=== PATIENT | female | born 1945 | race Caucasian/White ===

== ENCOUNTER 2019-12-13 17:41 | Emergency (ER) | payer MEDICARE, SELFPAY ==
[2019-12-13 17:53] VITALS: BP 82/42; PULSE 105; RESP 20; TEMP 36.4; O2SAT 94; BMI 23.3
--- NOTE | 2019-12-13 18:09 | XRR_ITS ---
PROCEDURE INFORMATION: Exam: XR Chest, 1 View Exam date and time: 12/13/2019 6:27 PM Age: 74 years old Clinical indication: Shortness of breath and other: Chest pain; Patient HX: C/O shortness of breath along with chest pain over 2 weeks. Previous XR 12/09/19; Additional info: SOB TECHNIQUE: Imaging protocol: XR of the chest Views: 1 view. COMPARISON: CR XR chest 2V* [id number] 12/09/2019 3:27 PM FINDINGS: Lungs: Opacity right upper lobe noted on the previous radiograph. Please refer to the CT chest dated 12-13-19 describing a large mass in the right upper lobe. Pleural space: Unremarkable. No pleural effusion. No pneumothorax. Heart/Mediastinum: The cardiac silhouette appears enlarged, some of which is magnification related to the AP projection. Bones/joints: Unremarkable. XR/XR chest 1V portable [id number] IMPRESSION: Opacity right upper lobe noted on the previous radiograph. Please refer to the CT chest dated 12-13-19 describing a large mass in the right upper lobe. No acute process is visualized.
--- NOTE | 2019-12-13 18:09 | ECG_ITS ---
[facility] Test Date: 2019-12-13 Pat Name: Tessie Loredo Department: Room: Gender: Female Road Roller Operator: : 1945 Requested By: Karan Henderson Order Number: [id number] Norah MD: Latonya Campos M.D. Measurements Intervals [place] Rate: 100 P: 67 [place]: 161 QRS: 58 QRSD: 82 T: 43 QT: 331 QTc: 427 Interpretive Statements SINUS TACHYCARDIA WITH OCCASIONAL SUPRAVENTRICULAR PREMATURE COMPLEXES LOW QRS VOLTAGE IN PRECORDIAL LEADS [QRS DEFLECTION < 1.0 mV IN CHEST LEADS] SEPTAL MYOCARDIAL INFARCTION , PROBABLY OLD [40+ ms Q WAVE IN V1/V2] No previous ECG available for comparison Electronically Signed On 12-13-2019 20:35:05 CDT by Latonya Campos M.D. [email or web address]
[2019-12-13] MEDS: sodium chloride 0.9% 1,000 ML 999 ML IV (18:26)
--- NOTE | 2019-12-13 18:28 | ED_ITS ---
HPI - SOB/Dyspnea General: Chief Complaint: Shortness of Breath/Dyspnea Stated Complaint: cough,sob Time Seen by Provider: 12/13/19 18:06 Source: patient Mode of arrival: ambulatory Limitations: no limitations History of Present Illness: HPI Narrative: 74-year-old female who states she has had shortness of breath along with chest pain over the last few weeks. She states she saw her PCP who gave her Levaquin which she is recently finished has had no improvement. She denies any worsening or improving factors. Patient is in no distress currently. She denies any fevers. She did have a COVID test last week as well that was negative. MD elicited complaint: shortness of breath Associated symptoms: Deny abdominal pain, chest pain, fever(s), nausea or vomiting Review of Systems Const: Denies: fever(s), chills, body aches or change in appetite Eyes: Denies: blurry vision or eye discomfort ENMT: Denies: throat pain or dental pain Card: Denies: chest pain Resp: Reports: dyspnea GI: Denies: abdominal pain, nausea, vomiting or diarrhea : Denies: dysuria Musc: Denies: neck pain or back pain Skin/Breast: Denies: rash Neuro: Denies: headache(s) Psych: Denies: depression Alfredo/Lymph: Denies: easy bruising All/Imm: Denies: urticaria Physical Exam Const: COMMON NORMALS: no acute distress, patient oriented x3 and healthy appearing HENMT: COMMON NORMALS: normocephalic and atraumatic HEAD & SCALP: normocephalic and atraumatic Eye: COMMON NORMALS: Equal, round and reactive pupils present and EOMs intact bilaterally PUPIL: Yes Equal, round and reactive pupils present Neck/C-Spine: COMMON NORMALS: full ROM and supple Chest: COMMONS NORMALS: normal inspection of the chest and normal palpation of entire chest wall Resp: COMMON NORMALS: normal respiratory effort, No retractions, No use of accessory muscles and clear to auscultation bilaterally AUSCULTATION: clear to auscultation bilaterally Cardio: COMMON NORMALS: regular rate, regular rhythm and No murmurs present (Cardio) RATE: regular rate RHYTHM: regular rhythm GI: COMMON NORMALS: Normal to inspection, nondistended, normoactive bowel sounds present, Soft to palpation, non-tender and no masses PALPATION: Yes Soft to palpation Extremity: COMMON NORMALS: normal to inspection and full ROM Neuro: COMMON NORMALS: patient oriented x3, moves all extremities and no focal motor deficits Psych: COMMON NORMALS: mental status grossly normal, Normal thought process present and cooperative THOUGHT PROCESS: Normal thought process present Skin: COMMON NORMALS: no rashes or lesions noted and no wounds GENERAL SKIN EXAM: no rashes or lesions noted Course Vital Signs: Vital signs: Vital Signs Temperature 97.6 F 12/13/19 17:53 Pulse Rate 105 H 12/13/19 20:47 Respiratory Rate 18 12/13/19 20:47 Blood Pressure 134/46 12/13/19 20:47 Pulse Oximetry 94 12/13/19 20:47 MDM - SOB/Dyspnea MDM Narrative: Medical decision making narrative: Patient presents with a rather extensive lung mass along with metastases. I informed her this she states that she does not plan on doing any oncology but I will set her up with pulmonology to go over her treatment options with a lung mass. She does have a DVT as well and we will start her on Eliquis. Patient prescribed pain meds. She is well-appearing here and is requesting discharge I feel she is stable for discharge at this point is return if worsening. Lab Data: Labs: Lab Results 12/13/19 12/13/19 12/13/19 Range/Units 18:20 18:20 18:20 WBC 23.3 H (4.0-10.0) 10^3/ uL RBC 4.44 (4.1-5.3) 10^6/u L Hgb 11.8 (11.5-15.3) g/dL Hct 36.9 L (37.0-47.0) % MCV 83.1 (81-99) fL MCH 26.6 L (28.0-34.0) pg MCHC 32.0 (30.0-36.0) g/dL RDW 15.2 H (12.1-15.1) % Plt Count 527 H (130-400) 10^3/c mm MPV 9.0 (7.4-10.4) fL Neut % (Auto) 74.8 % Lymph % (Auto) 8.8 % Whitley % (Auto) 6.7 % Eos % (Auto) 8.3 % Baso % (Auto) 0.5 % Neut # (Auto) 17.43 H (1.8-7.7) 10^3/u L Lymph # (Auto) 2.1 (0.8-4.8) 10^3/u L Whitley # (Auto) 1.6 H (0.2-0.9) 10^3/u L Eos # (Auto) 1.9 H (0.0-0.8) 10^3/u L Baso # (Auto) 0.1 (0.0-0.1) 10^3/u L Nucleated RBC % (a uto) 0 % Nucleated RBCs # 0.0 /100WBC PT 14.40 H (10.5-13.3) SECO NDS INR 1.09 (0.8-1.2) D-Dimer 2.83 H (0-0.59) ug/mIFE U Sodium 129 L (136-145) mmol/L Potassium 3.2 L (3.5-5.1) mmol/L Chloride 92 L (98-107) mmol/L Carbon Dioxide 22 (22-29) mmol/L Anion Gap 18.2 (5-19) BUN 34 H (8-23) mg/dL Creatinine 1.1 H (0.5-0.9) mg/dL GFR Calculation Not Reportable Glucose 129 H (65-115) mg/dL Calculated Osmolal ity 267 L (285-295) mOsm/k g Calcium 9.0 (8.5-10.5) mg/dL Total Bilirubin 0.4 (0.15-1.2) mg/dL AST 27 (0-32) U/L ALT 30 (0-33) U/L Alkaline Phosphata se 165 H (35-105) IU/L NT-Pro-B Natriuret Pep 322 H (0-125) pg/mL Total Protein 8.9 H (6.6-8.7) g/dL Albumin 3.0 L (3.5-5.2) g/dL Globulin 5.9 H (1.3-4.6) g/dL Imaging Data^: CT Chest: Radiologist's impression: [address] [address] [address] Scan Report Signed Patient: Tessie Loredo Unit #: [id number] : 1945 Age/Sex: 74 / F ADM Date: 12/13/19 Loc: ER Room/Bed: Attending Dr: Ordering Provider/Ordering MD: Karan Henderson MD Date of Service: 12/13/19 Procedure(s): CT chest w con* [id number] Accession Number(s): [id number] Report Number: [id number] PROCEDURE INFORMATION: Exam: CT Chest With Contrast Exam date and time: 12/13/2019 7:19 PM Age: 74 years old Clinical indication: Shortness of breath; Right-sided chest pain; Additional info: Mass TECHNIQUE: Imaging protocol: Computed tomography of the chest with intravenous contrast. Sagittal and coronal reformatted images were created and reviewed. Radiation optimization: All CT scans at this facility use at least one of these dose optimization techniques: automated exposure control; mA and/or kV adjustment per patient size (includes targeted exams where dose is matched to clinical indication); or iterative reconstruction. Contrast material: VISI 320; Contrast volume: 95 ml; Contrast route: INTRAVENOUS (IV); COMPARISON: CR XR chest 1V portable [id number] 12/13/2019 6:17 PM RADIATION DOSE METRICS: Total DLP (mGy-cm): 704.07 FINDINGS: Lungs: Debris layering in the proximal trachea. This may represent bronchial secretions. Tracheobronchial structures are patent. Large mass in the anterior/lateral right upper lobe with central necrosis. This invades through the chest wall. This mass measures 6.7 x 6.2 x 6.0 cm (series 601, image 55 and series 3, image 15). The mass is causing mild destruction of the inferior aspect of the the right anterior 1st rib and extensive destruction of the anterolateral right 2nd rib. Multiple spiculated lesions in the right lung, the largest in the right apex measures 2.7 x 1.5 x 2.5 cm (series 601, image 51 and series 3, image 11). Additional smoothly marginated noncalcified nodules in both lower lobes, the larger of these measures 1.1 x 1.1 cm (series 3, image 28). No focal consolidation. No pulmonary edema. Mild to moderate paraseptal and centrilobular emphysematous changes in the lungs, predominantly in the upper lobes. Pleural space: No pleural effusion. No pneumothorax. Heart: Mild enlargement of the heart. Thickening with fatty infiltration of the interatrial septum. The interatrial septum measures 1.6 cm (series 2, image 36). Calcification of the aortic valve. Mild atherosclerotic calcification in the coronary arteries. Mediastinal space: Small hiatal hernia. No mediastinal hematoma. No pneumomediastinum. Aorta: Moderate atherosclerotic changes in the visualized arteries. No evidence for aortic aneurysm or aortic dissection. Other arteries: Incidental note of separate origins of the common hepatic artery and splenic artery from the aorta. Pulmonary arteries are unremarkable as visualized. Other veins: There is a nearly total occlusive thrombus within the right brachiocephalic vein (series 602, image 34 and series 2, images 8-13). Pulmonary veins are unremarkable as visualized. Lymph nodes: Enlarged lymph node in the right hilum measuring 2.1 cm in short axis. Liver: Nodular contour of the liver. Multiple hypodense liver lesions, consistent with multiple hepatic metastases. The largest lesion measures 8.4 x 9.7 x 8.5 cm (series 2, image 65 and series 601, image 45). The largest lesions show evidence of central necrosis. Gallbladder and bile ducts: The gallbladder is unremarkable. No biliary ductal dilatation. Pancreas: Pancreatic parenchyma, suggesting sequela of chronic pancreatitis. No pancreatic ductal dilatation. No pancreatic atrophy. Spleen: The spleen is unremarkable. Adrenals: The right and left adrenal glands are unremarkable. Kidneys and ureters: Simple cyst in the right kidney measuring 2.2 cm. Subcentimeter hypodense focus in the left kidney that is too small to characterize, however likely represents a small cyst. Bones/joints: Multilevel degenerative changes of varying severity in the visualized spine. Also see under ?lungs? for findings regarding bony lesions. Soft tissues: See under ?lungs?. CT/CT chest w con* [id number] IMPRESSION: 1. There is a nearly total occlusive thrombus within the right brachiocephalic vein. Venous collaterals are seen in the upper right chest and paraspinal vessels. 2. Findings suspicious for a diffuse metastatic process in the chest and visualized abdomen with multiple spiculated and smoothly marginated pulmonary nodules in both lungs, a large mass in the right upper lobe invading the chest wall and causing destruction of the 1st and 2nd right ribs, right hilar enlarged lymph node, and multiple hepatic lesions. Fleischner follow up recommendations for incidental Pulmonary nodules are not indicated. Follow up per patient's medical condition. 3. Findings suggesting fatty hypertrophy of the interatrial septum. 4. Debris layering in the proximal trachea. This may represent bronchial secretions. 5. Small hiatal hernia. 6. Findings suspicious for cirrhosis in the liver. 7. Incidental/nonacute findings are listed in the report. EKG Data^: EKG 1: Attestation: I personally reviewed and interpreted this EKG as follows: EKG Interpretation Date: 12/13/19 EKG interpretation time: 18:44 Interpretation: sinus tach hr [address] or t wave abnormalities qrs 82 qtc 388 Discharge Plan Discharge Patient Disposition: Home Clinical Impression: Lung mass Arm DVT (deep venous thromboembolism), acute Qualifiers: Laterality: right Qualified Code(s): I82.621 - Acute embolism and thrombosis of deep veins of right upper extremity Condition: Stable Prescriptions: [place] 5-325 mg tablet 1 tab PO Q6H PRN (Reason: pain) Qty: 14 RF: 0 Eliquis 5 mg tablet 10 mg PO BID Qty: 14 RF: 0 Eliquis 5 mg tablet 5 mg PO BID Qty: 20 RF: 0 No Action atorvastatin 40 mg tablet 40 mg PO BEDTIME RF: 0 amlodipine 10 mg tablet 10 mg PO DAILY RF: 0 hydrochlorothiazide 25 mg tablet 25 mg PO DAILY RF: 0 levofloxacin 750 mg tablet 750 mg PO DAILY RF: 0 glipizide 5 mg tablet 5 mg PO DAILY RF: 0 olmesartan 40 mg tablet 40 mg PO DAILY RF: 0 metformin 750 mg tablet extended release 24 hr 750 mg PO BID RF: 0 Discharge Orders: Discharge Order (Routine); Ordered 12/13/19 Ordered By: Karan Henderson Referrals: Ruby Foreman MD [Primary Care Provider] - Roel Borges MD [Physician] - Discharge Diet: Advance as tolerated Discharge Activity: Resume usual activity Patient Instructions: Lung Cancer (ED) Discharge Date/Time: 12/13/19 20:48 Coding Level of Care Code ED Exceptional Student Education Aide for Chg Fwd Exam Comprehensive
--- NOTE | 2019-12-13 18:32 | CTR_ITS ---
PROCEDURE INFORMATION: Exam: CT Chest With Contrast Exam date and time: 12/13/2019 7:19 PM Age: 74 years old Clinical indication: Shortness of breath; Right-sided chest pain; Additional info: Mass TECHNIQUE: Imaging protocol: Computed tomography of the chest with intravenous contrast. Sagittal and coronal reformatted images were created and reviewed. Radiation optimization: All CT scans at this facility use at least one of these dose optimization techniques: automated exposure control; mA and/or kV adjustment per patient size (includes targeted exams where dose is matched to clinical indication); or iterative reconstruction. Contrast material: VISI 320; Contrast volume: 95 ml; Contrast route: INTRAVENOUS (IV); COMPARISON: CR XR chest 1V portable [id number] 12/13/2019 6:17 PM RADIATION DOSE METRICS: Total DLP (mGy-cm): 704.07 FINDINGS: Lungs: Debris layering in the proximal trachea. This may represent bronchial secretions. Tracheobronchial structures are patent. Large mass in the anterior/lateral right upper lobe with central necrosis. This invades through the chest wall. This mass measures 6.7 x 6.2 x 6.0 cm (series 601, image 55 and series 3, image 15). The mass is causing mild destruction of the inferior aspect of the the right anterior 1st rib and extensive destruction of the anterolateral right 2nd rib. Multiple spiculated lesions in the right lung, the largest in the right apex measures 2.7 x 1.5 x 2.5 cm (series 601, image 51 and series 3, image 11). Additional smoothly marginated noncalcified nodules in both lower lobes, the larger of these measures 1.1 x 1.1 cm (series 3, image 28). No focal consolidation. No pulmonary edema. Mild to moderate paraseptal and centrilobular emphysematous changes in the lungs, predominantly in the upper lobes. Pleural space: No pleural effusion. No pneumothorax. Heart: Mild enlargement of the heart. Thickening with fatty infiltration of the interatrial septum. The interatrial septum measures 1.6 cm (series 2, image 36). Calcification of the aortic valve. Mild atherosclerotic calcification in the coronary arteries. Mediastinal space: Small hiatal hernia. No mediastinal hematoma. No pneumomediastinum. Aorta: Moderate atherosclerotic changes in the visualized arteries. No evidence for aortic aneurysm or aortic dissection. Other arteries: Incidental note of separate origins of the common hepatic artery and splenic artery from the aorta. Pulmonary arteries are unremarkable as visualized. Other veins: There is a nearly total occlusive thrombus within the right brachiocephalic vein (series 602, image 34 and series 2, images 8-13). Pulmonary veins are unremarkable as visualized. Lymph nodes: Enlarged lymph node in the right hilum measuring 2.1 cm in short axis. Liver: Nodular contour of the liver. Multiple hypodense liver lesions, consistent with multiple hepatic metastases. The largest lesion measures 8.4 x 9.7 x 8.5 cm (series 2, image 65 and series 601, image 45). The largest lesions show evidence of central necrosis. Gallbladder and bile ducts: The gallbladder is unremarkable. No biliary ductal dilatation. Pancreas: Pancreatic parenchyma, suggesting sequela of chronic pancreatitis. No pancreatic ductal dilatation. No pancreatic atrophy. Spleen: The spleen is unremarkable. Adrenals: The right and left adrenal glands are unremarkable. Kidneys and ureters: Simple cyst in the right kidney measuring 2.2 cm. Subcentimeter hypodense focus in the left kidney that is too small to characterize, however likely represents a small cyst. Bones/joints: Multilevel degenerative changes of varying severity in the visualized spine. Also see under ?lungs? for findings regarding bony lesions. Soft tissues: See under ?lungs?. CT/CT chest w con* [id number] IMPRESSION: 1. There is a nearly total occlusive thrombus within the right brachiocephalic vein. Venous collaterals are seen in the upper right chest and paraspinal vessels. 2. Findings suspicious for a diffuse metastatic process in the chest and visualized abdomen with multiple spiculated and smoothly marginated pulmonary nodules in both lungs, a large mass in the right upper lobe invading the chest wall and causing destruction of the 1st and 2nd right ribs, right hilar enlarged lymph node, and multiple hepatic lesions. Fleischner follow up recommendations for incidental Pulmonary nodules are not indicated. Follow up per patient's medical condition. 3. Findings suggesting fatty hypertrophy of the interatrial septum. 4. Debris layering in the proximal trachea. This may represent bronchial secretions. 5. Small hiatal hernia. 6. Findings suspicious for cirrhosis in the liver. 7. Incidental/nonacute findings are listed in the report. COMMENTS: 1. THIS REPORT CONTAINS FINDINGS THAT MAY BE CRITICAL TO PATIENT CARE. The findings were verbally communicated via telephone conference with Karan Hoover at 8:24 PM CDT on 12/13/2019. The findings were acknowledged and understood. 2. Consistent with the [employer]'s Incidental Findings Committee white paper (J Am Gisele Radiol 2018): Any incidental renal lesion less than 1.0 cm or classified as too small to characterize, or any incidental cystic renal lesion characterized as simple-appearing, is likely benign. No follow-up imaging is recommended for these lesions per consensus recommendations based on imaging criteria. Radiation Dose CTDIVOL = (mGy): DLP = 704.07 (mGy-cm)
[2019-12-13 18:33] LABS: Basophils # 0.1 10^3/uL (0.0-0.1); Basophils % 0.5 %; Eosinophils # 1.9 10^3/uL (0.0-0.8); Eosinophils % 8.3 %; Hematocrit 36.9 % (37.0-47.0); Hemoglobin 11.8 g/dL (11.5-15.3); Lymphocytes # 2.1 10^3/uL (0.8-4.8); Lymphocytes % 8.8 %; Mean Corpuscular Hemoglobin 26.6 pg (28.0-34.0); Mean Corpuscular Volume 83.1 fL (81-99); Monocytes # 1.6 10^3/uL (0.2-0.9); Monocytes % 6.7 %; Neutrophils # 17.43 10^3/uL (1.8-7.7); Neutrophils % 74.8 %; Nucleated Red Blood Cells % 0 %; Platelet Count 527 10^3/cmm (130-400); Red Blood Count 4.44 10^6/uL (4.1-5.3); Red Cell Distribution Width 15.2 % (12.1-15.1); White Blood Count 23.3 10^3/uL (4.0-10.0)
[2019-12-13 18:40] LABS: INR 1.09 (0.8-1.2)
[2019-12-13 18:42] LABS: D Dimer 2.83 ug/mIFEU (0-0.59)
[2019-12-13 19:08] VITALS: BP 101/43; PULSE 101; O2SAT 93
[2019-12-13 19:08] LABS: Alanine Aminotransferase 30 U/L (0-33); Alkaline Phosphatase 165 IU/L (35-105); Anion Gap 18.2 (5-19); Aspartate Amino Transferase 27 U/L (0-32); Blood Urea Nitrogen 34 mg/dL (8-23); Carbon Dioxide 22 mmol/L (22-29); Chloride 92 mmol/L (98-107); Globulin 5.9 g/dL (1.3-4.6); Glucose 129 mg/dL (65-115); NT Pro B Type Natriuretic Pept 322 pg/mL (0-125); Osmolality Calculated 267 mOsm/kg (285-295); Potassium 3.2 mmol/L (3.5-5.1); Sodium 129 mmol/L (136-145); Total Bilirubin 0.4 mg/dL (0.15-1.2); Total Protein 8.9 g/dL (6.6-8.7)
[2019-12-13] MEDS: iodixanol 320 mg/mL 100mL Btl IV (19:42)
[2019-12-13 20:47] VITALS: BP 134/46; PULSE 105; RESP 18; O2SAT 94
--- NOTE | 2019-12-14 08:42 | PC.SOCIAL ---
Spoke with Soumya at Pulmonology ([facility]) regarding ED referral. Patient is scheduled with new Adhesive Bandage Machine Operator Dr Aquino for tomorrow 12/15/2019 at 11:15am. She had questions whether in network. Provided phone number to clinic to call and review this question with them but was sure they are in network. Also advised to call number on card to ensure referral does not need to come from PCP. She verbalized understanding and was reminded if she needs to reschedule appt to allow time to touch base with insurance she can do so when she calls. No further questions or concerns voiced.
--- NOTE | 2019-12-23 14:45 | DCPLANNER ---
Patient had a follow up appointment scheduled for 12.15.19 with [facility]. Patient did attend the appointment.
== END 2019-12-13 20:48 | disposition home or self-care (01) ==
PROVIDERS: Emergency Provider Emergency Medicine; PCP Family Medicine
DX: I82.621 Acute embolism and thrombosis of deep veins of right upper extremity (principal); R91.8 Other nonspecific abnormal finding of lung field; R07.9 Chest pain, unspecified
CPT/HCPCS: 12345; 36415; 71045; 71260; 80053; 83880; 85025; 85378; 85610; 93005; 96360; 99283; J7030; Q9967